=== PATIENT | female | born 2000 | race Caucasian/White ===

== ENCOUNTER 2019-01-06 09:39 | Emergency (ER) | payer OTHER ==
[~2019-01-06] VITALS: Ht 149.9 cm; Wt 65.3 kg
[2019-01-06 09:56] VITALS: Ht 149.9 cm; Wt 65.3 kg
[2019-01-06 11:26] VITALS: BP 118/72
== END 2019-01-06 11:40 | disposition home or self-care (01) ==
LOC: ED 09:39
DX: S20.211A Contusion of right front wall of thorax, initial encounter (principal); S90.31XA Contusion of right foot, initial encounter; M25.511 Pain in right shoulder; V43.62XA Car passenger injured in collision with other type car in traffic accident, initial encounter; Y93.89 Activity, other specified; Y92.89 Other specified places as the place of occurrence of the external cause; Y99.8 Other external cause status

== ENCOUNTER 2019-05-28 07:46 | Emergency (ER) | payer OTHER ==
[~2019-05-28] VITALS: Ht 149.9 cm; Wt 64.4 kg
[2019-05-28 07:53] VITALS: Ht 149.9 cm; Wt 64.4 kg
[2019-05-28 10:07] VITALS: BP 122/68
== END 2019-05-28 10:07 | disposition home or self-care (01) ==
LOC: ED 07:46
DX: J03.90 Acute tonsillitis, unspecified (principal); N39.0 Urinary tract infection, site not specified

== ENCOUNTER 2019-05-29 19:00 | Emergency (ER) | payer OTHER ==
[~2019-05-29] VITALS: Ht 149.9 cm; Wt 62.6 kg
[2019-05-29 19:07] VITALS: Ht 149.9 cm; Wt 62.6 kg
[2019-05-29 20:06] LABS: microscopic required? YES; urine erythrocyte 2+ (NEGATIVE)
[2019-05-29 20:08] LABS: BASOPHIL % 0.2 % (0-2); PLATELET COUNT 197 x10^3mcL (130-400)
[2019-05-29 20:13] LABS: CARBON DIOXIDE 24.5 mmol/L (21-32); CHLORIDE SERUM 100 mmol/L (98-107); CREATININE SERUM 0.8 mg/dL (0.6-1.0); GFR1 > 60 mL/min; GLUCOSE SERUM 80 mg/dL (74-106); POTASSIUM SERUM 3.5 mmol/L (3.5-5.1); SODIUM SERUM 138 mmol/L (136-145)
[2019-05-29 20:17] LABS: ALBUMIN 3.5 g/dL (3.4-5.0); ALKALINE PHOSPHATASE 82 U/L (46-116); ALT/SGPT 24 U/L (14-59); AST/SGOT 32 U/L (15-37); BILIRUBIN TOTAL 0.37 mg/dL (0.20-1.00); LIPASE 106 IU/L (73-393)
[2019-05-29 20:19] LABS: AMPHETAMINE QUAL UR NONE DETECTED (See below)
[2019-05-29 20:21] LABS: TOTAL PROTEIN, SERUM 8.9 g/dL (6.4-8.2)
[2019-05-29 21:31] VITALS: BP 104/61
== END 2019-05-29 21:31 | disposition home or self-care (01) ==
LOC: ED 19:00
PROVIDERS: Emergency Medicine
DX: J03.90 Acute tonsillitis, unspecified (principal); R50.9 Fever, unspecified; F12.929 Cannabis use, unspecified with intoxication, unspecified; R11.2 Nausea with vomiting, unspecified; Z98.890 Other specified postprocedural states
CPT/HCPCS: 86308; 87804; J1630; J2060; J7030